=== PATIENT | female | born 1950 | race Caucasian/White ===

== ENCOUNTER → 2017-08-21 | Outpatient (CLI) | payer OTHER | LOC: BRMIMAGING 08:09 | PROVIDERS: ATTEND Nurse Practitioner | DX: Z13.820 Encounter for screening for osteoporosis (principal); M85.89 Other specified disorders of bone density and structure, multiple sites; M48.54XA Collapsed vertebra, not elsewhere classified, thoracic region, initial encounter for fracture; K76.89 Other specified diseases of liver; K76.0 Fatty (change of) liver, not elsewhere classified; Z78.0 Asymptomatic menopausal state | CPT/HCPCS: 76705-PO ==

== ENCOUNTER → 2017-10-22 | Outpatient (CLI) | payer OTHER | LOC: CIMAGING 12:44 | PROVIDERS: ATTEND Nurse Practitioner | DX: S92.511D Displaced fracture of proximal phalanx of right lesser toe(s), subsequent encounter for fracture with routine healing (principal) | CPT/HCPCS: 36415-PO; 73660-PO ==